=== PATIENT | male | born 1990 | race Caucasian/White ===

== ENCOUNTER 2018-06-29 01:05 | Emergency (ER) | payer BC ==
--- NOTE | 2018-06-29 01:19 | EDM.PDOC ---
ED HPI GENERAL MEDICAL PROBLEM - General Stated Complaint: [facility] Time Seen by Provider: 06/29/18 01:10 Source of Information: Reports: EMS, Family History Limitations: Reports: Intoxication - History of Present Illness INITIAL COMMENTS - FREE TEXT/NARRATIVE: This is a 28-year-old male. Apparently he's been out tonight drinking heavily and as he was going home walking in the yard he apparently stumbled from standing height and fell hitting his forehead on a water suspect. At that time his significant other was able to arouse him but then he became less responsive laying on the ground and they called the ambulance. When the ambulance arrived he was not responsive to a sternal rub so they brought him here to the ER for evaluation. I spoke to his significant other and she states that the last time he ate anything was about 1-1/2 hours ago but he had been drinking heavily all day. He is not up-to-date with his tetanus. He does not take any illegal drugs according to his significant other. He's been doing fine otherwise prior to this evening. - Related Data Allergies Allergy/AdvReac Type Severity Reaction Status Date / Time No Known Allergies Allergy Verified 06/29/18 01:20 Home Meds: Home Meds . [No Known Home Meds] 06/29/18 [History] ED ROS GENERAL - Review of Systems Review Of Systems: Unable To Obtain - Physical Exam Exam: See Below Exam Limited By: Intoxication General Appearance: Obtunded, Other (With a sternal rub the patient did open his eyes and did reach for his chest or I did a sternal rub. He did jerk his upper extremity some in CT scan and when he got out of CT scan I took his arm over his face and dropped it but he did not hit his face.) Eye Exam: Bilateral Eye: Abnormal Pupil (Sluggishly reactive), Normal Inspection Ears: Normal External Exam, Normal Canal, Normal TMs, Other (No hemotympanum noted) Nose: Normal Inspection, No Blood Throat/Mouth: Normal Inspection, Normal Lips, Normal Teeth, No Airway Compromise Head Exam: Normocephalic, Other (The patient on the left forehead has a small about 1 cm laceration that is well approximated at this time) Neck: Other (A C-collar was put in place due to his inability to communicate) Respiratory/Chest: No Respiratory Distress, Lungs Clear, Normal Breath Sounds Cardiovascular: Regular Rate, Rhythm, No Murmur GI/Abdominal: Soft, Other (Palpation of the abdomen does not seem to cause any response there is no guarding there is no organomegaly noted) (Male) Exam: Deferred Neuro Exam (Abbreviated): Unresponsive, Other (He is unresponsive other than opening his eyes with a sternal rub, and went and I dropped his arm on his face he moved his arm and did not hit his face) Back Exam: Normal Inspection Extremities: Normal Inspection, Other (He does have to slight abrasions on his knees bilaterally but no bruising no swelling noted) Skin Exam: Warm, Dry ED LACERATION PROCEDURES - Laceration/Wound Repair Left Forehead Lac/wound length in cm: 1.4 Appearance: Superficial, Linear Distal NVT: Neuro & Vascular Intact Skin Prep: Saline Closed with: Steri-Strips, Other (Placed Mastisol with 3 Steri-Strips and pulled a closer together with good approximation and a large Band-Aid over it all) Sterile Dressing Applied: Provider Tetanus Status Addressed: Yes Complications: No Course - Vital Signs Last Recorded V/S: Last Vital Signs Temp 96.7 F 06/29/18 01:21 Pulse 104 H 06/29/18 01:21 Resp 18 06/29/18 01:21 BP 111/62 06/29/18 01:21 Pulse Ox 95 06/29/18 01:21 - Orders/Labs/Meds Orders: Active Orders 24 hr Category Date Time Status Vaccines to be Administered [RC] PER UNIT ROUTINE Care 06/29/18 02:36 Active Cervical Spine wo Cont [CT] Stat Exams 06/29/18 01:18 Taken Head wo Cont [CT] Stat Exams 06/29/18 01:19 Taken Labs: Laboratory Tests 06/29/18 06/29/18 Range/Units 01:10 01:10 WBC 8.29 (4.23-9.07) K/mm3 RBC 4.99 (4.63-6.08) M/mm3 Hgb 15.4 (13.7-17.5) gm/L Hct 44.3 (40.1-51.0) % MCV 88.8 (79.0-92.2) fl MCH 30.9 (25.7-32.2) pg MCHC 34.8 (32.2-35.5) g/dl RDW Std Deviation 41.9 (35.1-43.9) fL Plt Count 234 (163-337) K/mm3 MPV 9.4 (9.4-12.3) fl Neutrophils % (Manual) 43 (40-60) % Band Neutrophils % 0 (0-10) % Lymphocytes % (Manual) 41 H (20-40) % Atypical Lymphs % 4 % Monocytes % (Manual) 9 (2-10) % Eosinophils % (Manual) 3 (0.8-7.0) % Basophils % (Manual) 0 L (0.2-1.2) Platelet Estimate Adequate Plt Morphology Comment Normal Anisocytosis 1+ slight Microcytosis 1+ slight Macrocytosis 1+ slight RBC Morph Comment Abnormal Sodium 142 (136-145) mEq/L Potassium 3.6 (3.5-5.1) mEq/L Chloride 105 (98-107) mEq/L Carbon Dioxide 26 (21-32) mEq/L Anion Gap 14.6 (5-15) BUN 17 (7-18) mg/dL Creatinine 1.5 H (0.7-1.3) mg/dL Est Cr Clr Drug Dosing TNP Estimated GFR (MDRD) 56 (>60) mL/min BUN/Creatinine Ratio 11.3 L (14-18) Glucose 125 H (74-106) mg/dL Calcium 8.6 (8.5-10.1) mg/dL Total Bilirubin 0.3 (0.2-1.0) mg/dL AST 48 H (15-37) U/L ALT 49 (16-63) U/L Alkaline Phosphatase 85 (46-116) U/L Total Protein 8.1 (6.4-8.2) g/dl Albumin 4.0 (3.4-5.0) g/dl Globulin 4.1 gm/dL Albumin/Globulin Ratio 1.0 (1-2) Ethyl Alcohol 0.26 (0.00) gm% Meds: Medications Discontinued Medications Generic Name Dose Route Start Last Admin Trade Name Freq PRN Reason Stop Dose Admin Acetaminophen 650 mg 06/29/18 02:25 06/29/18 02:30 Tylenol PO 06/29/18 02:26 650 mg NOW ONE Administration Acetaminophen Confirm 06/29/18 02:26 06/29/18 02:31 Tylenol Administered 06/29/18 02:27 Not Given Dose 325 mg .ROUTE .STK-MED ONE Diphtheria/Tetanus/Acell Pertussis 0.5 ml 06/29/18 02:36 Adacel IM 06/29/18 02:37 .ONCE ONE - Radiology Interpretation Free Text/Narrative:: CT scan of the head does not show any acute fracture or acute intracranial hemorrhage or mass effect . CT scan of the neck does not show any acute fractures or subluxations. - Re-Assessments/Exams Free Text/Narrative Re-Assessment/Exam: 06/29/18 01:56 I spoke to the patient's significant other regarding the CT scan of the head and the neck. We will continue to monitor him closely while he is less than capable of alertness to make sure he stay safe. We will observe him until he awakens sufficiently to be able to go home with his significant other. 06/29/18 02:08 I spoke to his significant other regarding the alcohol level of 0.26. We will watch him here until he awakens in the to be coherent and ambulatory before we send him home. She is good with this. 06/29/18 02:33 The patient has awakened and he wants to go home. I spoke to him regarding his alcohol level and he appears to be able to carry on a conversation without difficulty. I will call a cab for him and that he'll go home by cab. His significant other is concerned for him. Departure - Departure Time of Disposition: 02:34 Disposition: Home, Self-Care 01 Condition: Fair Clinical Impression: Acute alcohol intoxication Qualifiers: Complication of substance-induced condition: uncomplicated Qualified Code(s): F10.929 - Alcohol use, unspecified with intoxication, unspecified Forehead contusion Qualifiers: Encounter type: initial encounter Qualified Code(s): S00.83XA - Contusion of other part of head, initial encounter Forehead laceration Qualifiers: Encounter type: initial encounter Qualified Code(s): S01.81XA - Laceration without foreign body of other part of head, initial encounter Abrasion of knee, left Qualifiers: Encounter type: initial encounter Qualified Code(s): S80.212A - Abrasion, left knee, initial encounter Abrasion of knee, right Qualifiers: Encounter type: initial encounter Qualified Code(s): S80.211A - Abrasion, right knee, initial encounter - Discharge Information *PRESCRIPTION DRUG MONITORING PROGRAM REVIEWED*: Not Applicable *COPY OF PRESCRIPTION DRUG MONITORING REPORT IN PATIENT CURTIS: Not Applicable Referrals: PCP,None [Primary Care Provider] - Forms: ED Department Discharge Additional Instructions: These do not drink any alcohol for the next 24 hours, watch for infection from the abrasions and the laceration and if there is any problems follow up with your family doctor, return to the ER as needed - My Orders Last 24 Hours: My Active Orders 06/29/18 01:18 Cervical Spine wo Cont [CT] Stat 06/29/18 01:19 Head wo Cont [CT] Stat 06/29/18 02:36 Vaccines to be Administered [RC] PER UNIT ROUTINE - Assessment/Plan Last 24 Hours: My Active Orders 06/29/18 01:18 Cervical Spine wo Cont [CT] Stat 06/29/18 01:19 Head wo Cont [CT] Stat 06/29/18 02:36 Vaccines to be Administered [RC] PER UNIT ROUTINE
[2018-06-29] MEDS ORDERED: Acetaminophen 325 MG Tab PO ONE (02:25)
[2018-06-29] MEDS ORDERED: Acetaminophen 325 MG Tab ONE (02:26)
[2018-06-29] MEDS ORDERED: Diphtheria,Pertussis(Acell),Tetanus Vaccine 0.5 ML SDV IM ONE (02:36)
--- NOTE | 2018-06-30 08:37 | CT ---
CT cervical spine Technique: Multiple axial sections were obtained from above C1 inferiorly to the mid T2 level. Reconstructed sagittal and coronal images were obtained. Findings: Slight loss of details are seen within the mid and lower cervical spine due to photon attenuation. Findings: Mild disc space narrowing noted at C2-C3 and C3-C4. Other disc spaces are maintained. Vertebral body heights are maintained. Vertebral bodies and posterior arches are intact. No fracture is seen. No bony central or bony neural foraminal adenosis is seen. No abnormal subluxation is seen on the reconstructed sagittal images. Mild scoliosis is seen. Impression: 1. Incidental findings as noted above. Nothing acute is appreciated. Diagnostic code #2 I agree prelwith iminary report from [facility], finalized at 06/29/18, 2:36 AM Central Time
== END 2018-06-29 02:44 | disposition home or self-care (01) ==
LOC: JD.ED 01:05
DX: S01.81XA Laceration without foreign body of other part of head, initial encounter (principal); S80.212A Abrasion, left knee, initial encounter; S80.211A Abrasion, right knee, initial encounter; F10.120 Alcohol abuse with intoxication, uncomplicated; Z23 Encounter for immunization; Y90.8 Blood alcohol level of 240 mg/100 ml or more
CPT/HCPCS: 36415; 70450; 72125; 80053; 85007; 85027; 90715; 99285; A9270; G0480

== ENCOUNTER 2022-03-26 22:01 | Emergency (ER) | payer BC ==
[2022-03-26 23:22] LABS: ACETAMINOPHEN 0 ug/mL (10-30)
== END 2022-03-27 01:28 | disposition home or self-care (01) ==
LOC: JD.ED 22:01
DX: R45.851 Suicidal ideations (principal); F10.929 Alcohol use, unspecified with intoxication, unspecified; F17.210 Nicotine dependence, cigarettes, uncomplicated; Z90.49 Acquired absence of other specified parts of digestive tract; Z20.822 Contact with and (suspected) exposure to COVID-19
CPT/HCPCS: 36415; 80053; 80143; 80179; 80306; 80307; 84443; 85025; 99284; U0002